=== PATIENT | female | born 1980 | race Caucasian/White ===

== ENCOUNTER → 2017-07-20 | Outpatient (CLI) | payer OTHER ==
--- NOTE | 2017-07-20 16:08 | RAD ---
EXAM DESCRIPTION: Ankle,Left 3 Views CLINICAL HISTORY: 37 years Female, PAIN COMPARISON: None. FINDINGS: 3 views of the left ankle show no acute fracture or malalignment. The tibiotalar joint space and talar dome are well-maintained. There is sclerotic appearance of the talus near the posterior facet of the subtalar joint. There is a small calcaneal enthesophyte at the insertion site of the Achilles tendon. IMPRESSION: Sclerotic appearance of the talar body posteriorly, nonspecific. This may be related to an old healed fracture, correlate with patient history. No acute left ankle abnormality. If clinical suspicion of acute injury persists, CT or MRI should be considered. Calcaneal spurring. Electronically signed by: Rey Rodríguez MD 07/20/2017 4:07 PM CDT
--- NOTE | 2017-07-20 16:10 | RAD ---
EXAM DESCRIPTION: Foot,Left 3 Views CLINICAL HISTORY: 37 years Female, PAIN COMPARISON: None. FINDINGS: 3 views of the left foot show no acute fracture or malalignment. Again seen is some irregular sclerosis involving the talar body posteriorly, possibly related to remote trauma. No radiopaque foreign body or soft tissue gas. There is a small calcaneal enthesophyte at the insertion site of the Achilles tendon. IMPRESSION: Calcaneal spurring, but no acute left foot abnormality. Sclerotic appearance of the talus posteriorly, possibly related to remote trauma. If clinically suspicious of acute injury, CT or MRI should be considered. Electronically signed by: Rey Rodríguez MD 07/20/2017 4:10 PM CDT
== END ==
LOC: RAD 09:07
PROVIDERS: ATTEND Orthopaedic Surgery
DX: M25.572 Pain in left ankle and joints of left foot (principal); M79.672 Pain in left foot; M77.32 Calcaneal spur, left foot

== ENCOUNTER → 2017-08-10 | Outpatient (CLI) | payer OTHER ==
--- NOTE | 2017-08-10 10:25 | MRI ---
MRI left ankle without contrast INDICATION: Ankle pain chronic, avascular necrosis of talus TECHNIQUE: Noncontrast MR imaging left ankle FINDINGS: Previous high-grade partial to full-thickness tear anterior talofibular ligament Large ankle effusion Diffuse osteonecrosis of the talus with very slight subchondral flattening/undulation posterior talar dome and slight subchondral undulation posterior subtalar facet. Small ossicles are noted in the calcaneonavicular interval developmental versus posttraumatic There is also a small infarct in the medial distal navicular without collapse. Small Achilles enthesophyte. No Achilles rupture. No rupture or inflammation of the plantar aponeurosis. Moderate edema associated with the large diffuse talar infarct indicating subacute to chronic infarct Patchy marrow edema in the remaining tarsal bones likely related to overuse or complex regional pain. No additional large infarcts. 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
== END | disposition home or self-care (01) ==
LOC: MRI 08:00
PROVIDERS: ATTEND Orthopaedic Surgery
DX: M87.072 Idiopathic aseptic necrosis of left ankle (principal)